=== PATIENT | male | born 1990 | race Caucasian/White ===

== ENCOUNTER 2020-05-04 00:53 | Emergency (ER) | payer OTHER ==
[~2020-05-04] VITALS: Ht 190.5 cm; Wt 97.5 kg
--- NOTE | 2020-05-04 01:06 | NUR ---
in tx rm for eval
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
--- NOTE | 2020-05-04 01:17 | NUR ---
xray at bedside
[2020-05-04] MEDS ORDERED: IBUPROFEN600 M1 ORAL (01:48)
[2020-05-04 01:49] VITALS: BP 127/81
--- NOTE | 2020-05-04 01:50 | NUR ---
pt aox4 given and understands discharge instructions. ambulatory out w steady gait
--- NOTE | 2020-05-04 20:47 | Diagnostic Imaging Report ---
Indication: Pain, trauma Technique: 4 views of the right knee Comparison: None Findings: No suprapatellar effusion. No acute fracture. No dislocation. The joint spaces are preserved. Impression: Negative
== END 2020-05-04 01:51 | disposition home or self-care (01) ==
LOC: EMR 01:18
DX: S80.11XA Contusion of right lower leg, initial encounter (principal); V03.90XA Pedestrian on foot injured in collision with car, pick-up truck or van, unspecified whether traffic or nontraffic accident, initial encounter; Y93.89 Activity, other specified; Y92.411 Interstate highway as the place of occurrence of the external cause
CPT/HCPCS: 99283